=== PATIENT | female | born 1980 | race Caucasian/White ===

== ENCOUNTER 2024-07-27 17:24 | Emergency (ER) | payer MEDICARE, MEDICAID, SELFPAY ==
[2024-07-27 17:26] VITALS: BP 97/60; PULSE 68; RESP 16; TEMP 36.3; O2SAT 96; BMI 33.4
--- NOTE | 2024-07-27 17:38 | DI.RAD.S_ITS ---
PROCEDURE: XR KNEE LT 1TO2V INDICATIONS: unable to bear weight TECHNIQUE: 2 views of the knee were acquired. COMPARISON: [facility], CR, XR KNEE ARTHRITIC SERIES LT, 11/16/2022, 16:16. FINDINGS: Bones: Mild degenerative changes. No acute displaced fracture or dislocation. Soft tissues: No significant joint effusion. IMPRESSION: Mild degenerative changes. No acute radiographic abnormality. Consider CT or MRI given reported history. Dictated by: Rubin Ricci M.D. on 07/27/2024 at 17:15 Approved by: Rubin Ricci M.D. on 07/27/2024 at 17:16
--- NOTE | 2024-07-27 18:52 | ED_ITS ---
HPI - Extremity Problem General Chief complaint: Extremity Problem,Nontraumatic Stated complaint: L Knee pain Time Seen by Provider: 07/27/24 18:51 Source: patient and EMS Mode of arrival: EMS History of Present Illness HPI Narrative: 44-year-old female with history of left knee ACL injury and meniscal injury in the remote past, chronic left knee pain, was getting out of a chair when she felt her left knee give way, with significant pain, unable to bear weight, does not recall falling forward, no blunt injury. Transfer by EMS in excruciating pain, splint applied, received IV fentanyl EN route, feels that she can not bear any weight. No other injuries. She denies pain to her left hip, left upper thigh, left distal mid foreleg, left ankle foot toes. Related Data Previous Rx's Medication Instructions Recorded hydrocodone 5 mg-acetaminophen 325 1 tab PO Q6H PRN pain #14 tabs 07/27/24 mg tablet Allergies Allergy/AdvReac Type Severity Reaction Status Date / Time Penicillins Allergy Hives Verified 07/27/24 17:37 Patient History Social History Smoking Status: Current every day smoker Smoking Status: Current every day smoker tobacco type: vaping Exam Narrative Exam Narrative: GENERAL: Well-developed patient, in mild distress. HEAD: Atraumatic. Normocephalic. EYES: Pupils equal round and reactive. Extraocular motions intact. No scleral icterus. No injection or drainage. ENT: Nose without bleeding, purulent drainage. Throat without erythema, tonsillar hypertrophy or exudate. Airway patent. NECK: Trachea midline. Non tender CARDIOVASCULAR: Regular rate and rhythm without murmurs, gallops, or rubs. RESPIRATORY: Clear to auscultation. Breath sounds equal bilaterally. No wheezes, rales, or rhonchi. GASTROINTESTINAL: Abdomen soft, non-tender, nondistended. EXTREMITIES: Left lower extremity in EMS splint, opened up for exam, no obvious left knee effusion, no gross deformity, no tenderness around patella or along patellar tendon, no tenderness along lateral joint line or medial joint line, no tenderness along distal thigh or along foreleg. BACK: Nontender without deformity or crepitance. No flank tenderness. NEURO: AOx3. Motor functions grossly nonfocal SKIN: No rash or erythema of visible areas Initial Vital Signs Initial Vital Signs: Vital Signs Temperature 97.4 F L 07/27/24 17:26 Pulse Rate 68 07/27/24 17:26 Respiratory Rate 16 07/27/24 17:26 Blood Pressure 97/60 07/27/24 17:26 Pulse Oximetry 96 07/27/24 17:26 Oxygen Delivery Method Room Air 07/27/24 17:26 Course Orders Ordered: ED Orders 07/27/24 18:58 CT LE LT wo con Stat Discontinued Medications Hydrocodone Bitart/Acetaminophen (Hydrocodone/Acet 5/325 Prepack) 1 bottle MISC DIRECTED ONE Stop: 07/27/24 21:51 Last Admin: 07/27/24 22:04 Dose: 1 bottle Documented By: TORO Hydromorphone HCl (Hydromorphone 0.5 Mg Inj) 0.5 mg IV NOW ONE Stop: 07/27/24 18:52 Last Admin: 07/27/24 19:04 Dose: 0.5 mg Documented By: TORO Ketorolac Tromethamine (Ketorolac 30 Mg/Ml Vial) 15 mg IV NOW ONE Stop: 07/27/24 18:59 Last Admin: 07/27/24 19:04 Dose: 15 mg Documented By: TORO Vital Signs Vital signs: Vital Signs - 8 hr 07/27/24 17:26 Temperature 97.4 F L Pulse Rate 68 Respiratory Rate 16 Blood Pressure 97/60 Pulse Oximetry 96 Oxygen Delivery Method Room Air MDM - Extremity (Nontraumatic) Imaging Data Extremity x-ray #1: Radiologist's Impression: [place] [address] XRay Report Signed Patient: Linda Atkinson MR#: [id number] : 1980 Acct:[id number] Age/Sex: 44 / F Date of Service: 07/27/24 Loc: ED Accession Number: [id number] Procedure: XR knee LT 1to2V Ordering Provider: Rhea Sahni D.O. PROCEDURE: XR KNEE LT 1TO2V INDICATIONS: unable to bear weight TECHNIQUE: 2 views of the knee were acquired. COMPARISON: [facility], , XR KNEE ARTHRITIC SERIES LT, 11/16/2022, 16:16. FINDINGS: Bones: Mild degenerative changes. No acute displaced fracture or dislocation. Soft tissues: No significant joint effusion. IMPRESSION: Mild degenerative changes. No acute radiographic abnormality. Consider CT or MRI given reported history. Dictated by: Rubin Ricci M.D. on 07/27/2024 at 17:15 Approved by: Rubin Ricci M.D. on 07/27/2024 at 17:16 CT left knee noncontrast: My Impression: [address] [address] [address] Scan Report Signed Patient: Linda Atkinson MR#: [id number] : 1980 Acct:[id number] Age/Sex: 44 / F Date of Service: 07/27/24 Loc: ED Accession Number: [id number] Procedure: CT LE LT wo con Ordering Provider: Kumar Bentley MD PROCEDURE: CT LE LT W CON INDICATIONS: left knee pain, injury, cannot bear wt, XR neg TECHNIQUE: Noncontrast 1-1.5 mm axial sections acquired from the mid-patella to the proximal tibia, with coronal and sagittal reformats. COMPARISON: None. FINDINGS: Image quality: Excellent. Bones: Left knee alignment is anatomic. No acute fracture or dislocation. No suspicious intraosseous lesions. Moderate tricompartmental osteoarthritis is se en with joint space narrowing, subchondral sclerosis and marginal osteophyte formation more notably in medial femoral tibial compartment. No significant patellar subluxation. Soft tissues: There is no significant joint effusion. No calcified intra- articular loose bodies. No abnormal soft tissue calcifications. Distal quadriceps tendon and patellar tendon are intact. Limited evaluation of cruciate ligaments shows no definite full-thickness cruciate ligament rupture. IMPRESSION: 1. No acute left knee fracture or dislocation. Moderate tricompartmental osteoarthritis most notably in medial femoral tibial compartment. No suspicious bony lesions. 2. No significant joint effusion or calcified intra-articular loose bodies. No obvious full-thickness cruciate ligament rupture. Quadriceps tendon and patellar tendon are intact. Dictated by: Geo Iyer M.D. on 07/27/2024 at 20:16 Approved by: Geo Iyer M.D. on 07/27/2024 at 20:18 [facility] Narrative Medical decision making narrative: 44-year-old female with left knee pain problems, prior ACL injury and meniscal injury, was getting out of chair when she felt excruciating left knee pain, no blunt trauma, could not move, could not bear weight, arrival by EMS, given fentanyl EN route by EMS. She requires additional pain medication, still feels quite uncomfortable in EMS splint. On examination does not seem to have gross deformity or effusion, no tenderness to joint line, Rosmery's seems reasonable, good distal perfusion. X-ray left knee from triage ordered, no obvious fractures, consider CT imaging, arthritic changes noted. Patient would like to proceed with CT imaging although there was no blunt trauma, no MRI available at this time. IV Toradol, IV Dilaudid. CT left knee noncontrast ordered, per patient request CT left knee showed no acute changes, see radiology report. Crutches and knee immobilizer, follow up with Orthopedic surgery advised, contact information given for local orthopedic surgery on-call Dr. Lyn. She would like pain medication and we will take ibuprofen [id number]. Dispensed hydrocodone dose, home pack, sent further hydrocodone to her pharmacy. Improved, home with family Discharge Plan Departure Patient Disposition: Home Clinical Impression: Strain of left knee Activity Restrictions/Additional Instructions: Left knee pain with movement injury, no blunt trauma. Significant pain, arrival by EMS with splint placed, IV fentanyl given, still with significant pain. IV Dilaudid given, IV Toradol given. Plain x-rays without obvious bony fractures or dislocation changes. CT additional imaging of the left knee performed, also showed no acute changes. However these images do not show any ligamentous structures, and you might have had an intra-articular injury, no MRI imaging available at this time. Symptoms seemed to be improved. Placed in knee immobilizer, with instructions to use crutches and nonweightbearing to the affected left extremity. Follow up with Orthopedic surgery advised. Contact information given for local orthopedic surgeon Dr. Michel on-call. You might need referral from your primary care provider, but her office information is provided if you choose to initiate arrangements with their office tomorrow during open hours Sunday. Take Motrin for pain and inflammation control. Elevate, ice applications as tolerated. Return earlier to this/nearest emergency department for any change worsening symptoms or any concerns prior Prescriptions: New hydrocodone-acetaminophen 5-325 mg tablet 1 tab PO Q6H PRN (Reason: pain) Qty: 14 0RF Referrals: Cristy Michel MD [Physician] - Stand Alone Forms: Patient Portal/API/Survey
--- NOTE | 2024-07-27 18:58 | DI.CT.S_ITS ---
PROCEDURE: CT LE LT W CON INDICATIONS: left knee pain, injury, cannot bear wt, XR neg TECHNIQUE: Noncontrast 1-1.5 mm axial sections acquired from the mid-patella to the proximal tibia, with coronal and sagittal reformats. COMPARISON: None. FINDINGS: Image quality: Excellent. Bones: Left knee alignment is anatomic. No acute fracture or dislocation. No suspicious intraosseous lesions. Moderate tricompartmental osteoarthritis is seen with joint space narrowing, subchondral sclerosis and marginal osteophyte formation more notably in medial femoral tibial compartment. No significant patellar subluxation. Soft tissues: There is no significant joint effusion. No calcified intra-articular loose bodies. No abnormal soft tissue calcifications. Distal quadriceps tendon and patellar tendon are intact. Limited evaluation of cruciate ligaments shows no definite full-thickness cruciate ligament rupture. IMPRESSION: 1. No acute left knee fracture or dislocation. Moderate tricompartmental osteoarthritis most notably in medial femoral tibial compartment. No suspicious bony lesions. 2. No significant joint effusion or calcified intra-articular loose bodies. No obvious full-thickness cruciate ligament rupture. Quadriceps tendon and patellar tendon are intact. Dictated by: Geo Iyer M.D. on 07/27/2024 at 20:16 Approved by: Geo Iyer M.D. on 07/27/2024 at 20:18
[2024-07-27] MEDS: KETOROLAC 30 MG/ML VIAL 15 MG IV (19:04)
[2024-07-27] MEDS: HYDROMORPHONE 0.5 MG INJ IV (19:04)
[2024-07-27] MEDS: HYDROCODONE/ACET 5/325 PREPACK 1 BOTTLE MISC (22:04)
== END 2024-07-27 22:17 | disposition home or self-care (01) ==
PROVIDERS: Emergency Provider Emergency Medicine
DX: S86.812A Strain of other muscle(s) and tendon(s) at lower leg level, left leg, initial encounter (principal); X58.XXXA Exposure to other specified factors, initial encounter; Y93.89 Activity, other specified; Y92.810 Car as the place of occurrence of the external cause
CPT/HCPCS: 73560; 73700; 96374; 96375; 99284; J1171; J1885